=== PATIENT | male | born 1955 | race Caucasian/White ===

== ENCOUNTER 2016-08-19 07:45 | Emergency (ER) | payer OTHER ==
--- NOTE | 2016-08-19 09:33 | DIAGNOSTIC IMAGING REPORT ---
PROCEDURE: XR TOE - LEFT INDICATION: Right second toe ulceration, initial encounter TECHNIQUE: Three views COMPARISON: None. FINDINGS: Soft tissue swelling of the right second toe but the no evidence of osteomyelitis. Prior amputation of the third toe from the distal aspect of the proximal phalanx. IMPRESSION: 1. Soft tissue swelling of the right second toe suggestive of cellulitis but no evidence of osteomyelitis 2. Right third toe amputation
--- NOTE | 2016-08-19 11:24 | ED ORDER SUMMARY ---
..... Patient: JACKELYN THOMPSON OrderSheet [facility] VisitID: [id number] [address] [place] [address] 60y, M Registration Date/Time: 08/19/2016 ORDER SHEET Weight: 109.1 kg (stated) Allergies: Valium, Levofloxacin, Codeine GENERAL ORDERS: Toe Left Urgent (08:34 08/19/2016 Samuel Gonzalez) (Ack 8:36 TBergley) (9:08 MWinterer R.N.) CBC w Diff Urgent (08:08/19/2016 Samuel Gonzalez) (Ack 8:36 TBergley) (9:08 LSullivan R.N.) (9:08 MWinterer R.N.) CMP Urgent (08:08/19/2016 Samuel Gonzalez) (Ack 8:36 TBergley) (9:08 LSullivan R.N.) (9:08 MWinterer R.N.) PT with INR Urgent (08:34 08/19/2016 Samuel Gonzalez) (Ack 8:36 TBergley) (9:08 LSullivan R.N.) (9:08 MWinterer R.N.) PTT Urgent (08:08/19/2016 Samuel Gonzalez) (Ack 8:36 TBergley) (9:08 LSullivan R.N.) (9:08 MWinterer R.N.) Sed Rate Urgent (08:08/19/2016 Samuel Gonzalez) (Ack 8:37 TBergley) (9:08 LSullivan R.N.) (9:08 MWinterer R.N.) CRP Urgent (08:08/19/2016 Samuel Gonzalez) (Ack 8:36 TBergley) (9:08 LSullivan R.N.) (9:08 MWinterer R.N.) - (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 verbal order read back to Samuel Gonzalez) (9:19 TBergley) Culture, Wound Deep (Foot) (swab) Urgent (11:37 08/19/2016 Frederic AGUILAR) (Ack 11:44 TBergley) (11:53 MWinterer R.N.) MEDICATION ORDERS: IV FLUIDS: IV Saline Lock (08:35 08/19/2016 Samuel Gonzalez) (9:08 LSullivan R.N.) D-50 IV 25 gm (NOW, IVP) (09:48 08/19/2016 Frederic AGUILAR) (Ack 9:50 MWinterer R.N.) (9:56 MWinterer R.N.) Vancomycin IV 2 gm/500 mL (NOW) (11:36 08/19/2016 Frederic AGUILAR) (Ack 11:53 MWinterer R.N.) (12:22 MWinterer R.N.) ORDER SHEET NOTES: [Electronically signed by Isabella Mancuso R.N. (15:32 08/19/2016)] [Electronically signed by Harry Edmond MD (22:13 08/22/2016)] [Electronically locked/signed by Isabella Mancuso R.N. (15:32 08/19/2016)]
--- NOTE | 2016-08-19 11:24 | ED CLINICAL REPORT ---
Clinical Report - Physicians/Mid Levels [facility] [address] [place] [address] 08/19/2016 7:48 Patient: JACKELYN THOMPSON Time Seen: 8:22. Arrived- By private vehicle. Historian- patient. CPT: ER phys charges level 5 (#[id number]). HISTORY OF PRESENT ILLNESS Chief Complaint: ; ;(left 2nd digit swelling and apin). Severity is described as being severe. It has become recently worse. The quality is noted to be sharp. No radiation. Modifying factors- worsened by movement. Relieved by remaining still. Is still present (worsening). Location: left 2nd toe. The patient has had redness (over area of toe). He has had moderate swelling of the right 2nd toe. No difficulty walking. No bladder dysfunction or bowel dysfunction. ( reports pus to the toe and wound). Patient denies an injury. Similar symptoms previously: None. Recent medical care: Not recently seen/assessed. REVIEW OF SYSTEMS No cough, chest pain, difficulty breathing, fever or enlarged lymph nodes. No neck pain, back pain, sore throat or throat or abdominal pain. No vomiting, diarrhea, black stools, difficulty with urination or weakness. No diabetic symptoms or easy bruising. The patient has had skin rash. All systems otherwise negative, except as recorded above. PAST HISTORY See nurses notes. Medications: Magnesium Oral. Eucerin External. Albuterol Sulfate Inhalation. Flonase Nasal. Claritin Oral. Insulin Glargine Subcutaneous. Insulin Aspart Subcutaneous. Allergies: Codeine. Levofloxacin. Valium. SOCIAL HISTORY Never smoker. No alcohol use or drug use. No recent travel. Is a local resident. ADDITIONAL NOTES The nursing notes have been reviewed. PHYSICAL EXAM Vital Signs: 08/19/2016 07:54 BP: 142/65. HR: 97. RR: 22. O2 saturation: 97%. Temp: 98.6 F. Pain level now: 8/10. Blood pressure normal. Oxygen saturation normal. Appearance: Alert. Oriented X3. No acute distress. Eyes: Pupils equal, round and reactive to light. Eyes normal inspection. ENT: Ears normal. Nose normal. Pharynx normal. Neck: Normal inspection. Neck supple. CVS: Normal heart rate and rhythm. Heart sounds normal. Respiratory: No respiratory distress. Breath sounds normal. Abdomen: Soft and nontender. No organomegaly. Back: Normal inspection. No tenderness. ROM normal. Skin: Skin intact. Skin warm and dry. Normal skin color. Normal skin turgor. Extremities: (digits missing from the left foot. The second digit on the left foot is erythematous with pustule present. Chronic ulcerative wound noted to the plantar aspect of the toe over the distal aspect. No signs of ascending infection. Area is tender to palpation. No crepitus. No bony other maladies.). Extremities otherwise negative. Neuro: Oriented X 3. No motor deficit. No sensory deficit. LABS, X-RAYS, AND EKG Rt Foot X-ray: (3rd toe amputation. Second toe STS but no evidence of osteo.). Views: 3 view foot series. Technique: good. The X-rays were independently viewed by me and interpreted by the radiologist. Laboratory Tests: UA-Culture if indicated: (LEONELA: 08/19/2016 09:00) ( Mscvd 08/19/2016 09:30) Final results Test Result Flag Units (Reference) URINE COLOR YELLOW URINE APPEARANCE CLEAR URINE GLUCOSE TRACE (NEGATIVE) URINE BILIRUBIN NEGATIVE (NEGATIVE) URINE KETONE NEGATIVE (NEGATIVE) URINE SPECIFIC GRAVITY 1.025 (1.010-1.030) URINE PH 5.5 (5.0-8.0) URINE PROTEIN 1+ (NEGATIVE) URINE UROBILINOGEN 0.2 EU/dL (0.2-1.0) URINE NITRITE NEGATIVE (NEGATIVE) URINE BLOOD TRACE-INTACT (NEGATIVE) URINE LEUK ESTERASE NEGATIVE (NEGATIVE) URINE RBC NONE SEEN rbc/hpf (0-1) URINE WBC RARE wbc/hpf (0-1) URINE EPITHELIAL CELLS RARE EPI/hpf (0-5) URINE BACTERIA NONE SEEN (NONE SEEN) URINE COMMENT CULT NOT INDICATED URINE CULTURES ARE SET-UP BASED ON THE FOLLOWING CRITERIA:POSITIVE NITRITEPOSITIVE LEUKOCYTE ESTERASEGREATER THAN 10 WHITE BLOOD CELLSMODERATE (2+) OR GREATER BACTERIA CBC w Diff: (LEONELA: 08/19/2016 09:00) ( MsgRcvd 08/19/2016 09:38) Final results Test Result Flag Units (Reference) WHITE BLOOD COUNT 10.6 K/uL (4.5-11.5) RED BLOOD COUNT 4.09 L M/uL (4.50-5.90) HEMOGLOBIN 13.0 L gm/dL (13.5-17.5) HEMATOCRIT 38.1 L % (41.0-53.0) MEAN CELL VOLUME 93 fL (80-100) MEAN CORPUSCULAR HGB 32 pg (26-34) MEAN CORPUSCULAR HGB CONC 34 g/dL (31-37) RED CELL DISTRIBUTION WIDTH 14.2 % (11.6-14.8) PLATELET COUNT 191 K/uL (150-400) NEUTROPHIL % 70.4 % (50-75) LYMPH % 16.6 L % (25-40) MONO % 8.7 % (3-14) EOSINOPHIL % 3.8 % (0-4) BASOPHIL % 0.5 % (0-2) SED RATE WESTERGREN 71 H mm/hr (0-20) PT with INR: (LEONELA: 08/19/2016 09:00) ( MsgRcvd 08/19/2016 09:20) Final results Test Result Flag Units (Reference) INR 1.0 (0.8-1.2) Low Intensity Therapy: INR 1.5-2.0 PT range 18.5-23.1Mod.Intensity Therapy: INR 2.0-3.0 PT range 23.1-31.5High Intensity Therapy: INR 2.5-3.5 PT range 27.4-35.5High Intensity Therapy 2: INR 3.0-4.0 PT range 31.5-39.3 APTT 27 SECONDS (24-34) CMP: (LEONELA: 08/19/2016 09:00) ( MsgRcvd 08/19/2016 09:36) Final results Test Result Flag Units (Reference) GLUCOSE 70 mg/dL (70-110) BUN 70 H mg/dL (7-18) CREATININE 3.2 H mg/dL (0.6-1.3) Estimated GFR 21.02 mL/min Estimated GFR- 25.48 mL/min Note: Persistent reduction over 3 months in eGFR<60 mL/min/1.73 m2 defines CKD. Patients with eGFR values>=60 mL/min/1.73 m2 may also have CKD if evidence ofpersistent proteinuria. Additional information may be foundat www.kidney.org. SODIUM 136 mmol/L (136-145) POTASSIUM 3.5 mmol/L (3.5-5.1) CHLORIDE 97 L mmol/L (98-107) CARBON DIOXIDE 26 mmol/L (21-32) CALCIUM 9.5 mg/dL (8.5-10.1) TOTAL PROTEIN 7.4 g/dL (6.4-8.2) ALBUMIN 3.7 g/dL (3.3-5.0) BILIRUBIN, TOTAL 0.6 mg/dL (0.0-1.0) ALKALINE PHOSPHATASE 88 U/L (46-116) AST (SGOT) 4 L U/L (15-37) ALT (SGPT) 35 U/L (12-78) C-REACTIVE PROTEIN 5.5 H mg/dL (0.0-0.9) . PROGRESS AND PROCEDURES Course of Care: The patient is a pleasant 60-year-old male with past medical history significant for diabetes, hypertension, and prior amputations presented for evaluation of left second digit toe pain. At this time differential diagnosis includes osteomyelitis, gangrene, and cellulitis. Patient is to be evaluated with laboratory studies and x-rays. At this time workup is pending. The oncoming physician will follow-up with the patient's laboratory studies and x-ray. Patient follows up with Dr. Peacock. Patient is contacted this physician who antoni log chain worker. Patient states that Dr. Peacock will be seeing the patient here in the emergency department. 09:55 08/19/16. I have evaluated the patient's right second toe. His CRP is elevated but his x-ray doesn't show any signs of osteopenia. He has A bullus and erythematous swelling on his right second toe. ER is Dr. Edmond. Awaiting Dr Peacock arrival. Pt due for dialysis today and there are no services here at [facility]. Will discuss with Dr Peacock as too the facility an amputation should occur in given the medical [problems. Culture of bulla aspirate right second toe Vancomycin 2g IV 12:12 08/19/16. Discussed with Dr Cobb: Wesley and he will accept patient in transfer. Pt wants to drive to [facility] and not take ambulance. Consult obtained. Dr. Peacock from podiatry. Patient/family counseled. Disposition: Transferred to [facility]. CLINICAL IMPRESSION Infected right second toe IDDM CRF: dialysis. INSTRUCTIONS (Go to [facility] for admission. Dr Cobb is your Doctor. Bed D627 is your Hospital bed assignment.). (Electronically signed by Harry Edmond MD 08/22/2016 22:13) Addenda for JACKELYN THOMPSON VisitID: [id number] Date: 08/19/2016 08/20/2016 14:21 Phone call placed to RN cold storage supervisor at [facility], faxed culture report "gram negative carroll" in wound, to floor where pt is admitted, fax number [phone]. (Electronically signed by Janae Alamo R.N. - 08/20/2016 14:21) 08/21/2016 16:52 Final Wound Culture faxed to where pt is admitted. fax # [phone]. (Electronically signed by Alva Caldwell R.N. - 08/21/2016 16:52)
--- NOTE | 2016-08-19 11:24 | ED ORDER SUMMARY ---
..... Patient: JACKELYN THOMPSON OrderSheet [facility] VisitID: [id number] [address] [place] [address] 60y, M Registration Date/Time: 08/19/2016 ORDER SHEET Weight: 109.1 kg (stated) Allergies: Valium, Levofloxacin, Codeine GENERAL ORDERS: Toe Left Urgent (08:34 08/19/2016 Samuel Gonzalez) (Ack 8:36 TBergley) (9:08 MWinterer R.N.) CBC w Diff Urgent (08:08/19/2016 Samuel Gonzalez) (Ack 8:36 TBergley) (9:08 LSullivan R.N.) (9:08 MWinterer R.N.) CMP Urgent (08:08/19/2016 Samuel Gonzalez) (Ack 8:36 TBergley) (9:08 LSullivan R.N.) (9:08 MWinterer R.N.) PT with INR Urgent (08:34 08/19/2016 Samuel Gonzalez) (Ack 8:36 TBergley) (9:08 LSullivan R.N.) (9:08 MWinterer R.N.) PTT Urgent (08:08/19/2016 Samuel Gonzalez) (Ack 8:36 TBergley) (9:08 LSullivan R.N.) (9:08 MWinterer R.N.) Sed Rate Urgent (08:08/19/2016 Samuel Gonzalez) (Ack 8:37 TBergley) (9:08 LSullivan R.N.) (9:08 MWinterer R.N.) CRP Urgent (08:08/19/2016 Samuel Gonzalez) (Ack 8:36 TBergley) (9:08 LSullivan R.N.) (9:08 MWinterer R.N.) - (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 verbal order read back to Samuel Gonzalez) (9:19 TBergley) Culture, Wound Deep (Foot) (swab) Urgent (11:37 08/19/2016 Frederic AGUILAR) (Ack 11:44 TBergley) (11:53 MWinterer R.N.) MEDICATION ORDERS: IV FLUIDS: IV Saline Lock (08:35 08/19/2016 Samuel Gonzalez) (9:08 LSullivan R.N.) D-50 IV 25 gm (NOW, IVP) (09:48 08/19/2016 Frederic AGUILAR) (Ack 9:50 MWinterer R.N.) (9:56 MWinterer R.N.) Vancomycin IV 2 gm/500 mL (NOW) (11:36 08/19/2016 Frederic AGUILAR) (Ack 11:53 MWinterer R.N.) (12:22 MWinterer R.N.) ORDER SHEET NOTES: [Electronically signed by Isabella Mancuso R.N. (15:32 08/19/2016)] [Electronically signed by Harry Edmond MD (22:13 08/22/2016)] [Electronically locked/signed by Isabella Mancuso R.N. (15:32 08/19/2016)]
--- NOTE | 2016-08-19 11:24 | ED CLINICAL REPORT ---
Clinical Report - Physicians/Mid Levels [facility] [address] [place] [address] 08/19/2016 7:48 Patient: JACKELYN THOMPSON Time Seen: 8:22. Arrived- By private vehicle. Historian- patient. CPT: ER phys charges level 5 (#[id number]). HISTORY OF PRESENT ILLNESS Chief Complaint: ; ;(left 2nd digit swelling and apin). Severity is described as being severe. It has become recently worse. The quality is noted to be sharp. No radiation. Modifying factors- worsened by movement. Relieved by remaining still. Is still present (worsening). Location: left 2nd toe. The patient has had redness (over area of toe). He has had moderate swelling of the right 2nd toe. No difficulty walking. No bladder dysfunction or bowel dysfunction. ( reports pus to the toe and wound). Patient denies an injury. Similar symptoms previously: None. Recent medical care: Not recently seen/assessed. REVIEW OF SYSTEMS No cough, chest pain, difficulty breathing, fever or enlarged lymph nodes. No neck pain, back pain, sore throat or throat or abdominal pain. No vomiting, diarrhea, black stools, difficulty with urination or weakness. No diabetic symptoms or easy bruising. The patient has had skin rash. All systems otherwise negative, except as recorded above. PAST HISTORY See nurses notes. Medications: Magnesium Oral. Eucerin External. Albuterol Sulfate Inhalation. Flonase Nasal. Claritin Oral. Insulin Glargine Subcutaneous. Insulin Aspart Subcutaneous. Allergies: Codeine. Levofloxacin. Valium. SOCIAL HISTORY Never smoker. No alcohol use or drug use. No recent travel. Is a local resident. ADDITIONAL NOTES The nursing notes have been reviewed. PHYSICAL EXAM Vital Signs: 08/19/2016 07:54 BP: 142/65. HR: 97. RR: 22. O2 saturation: 97%. Temp: 98.6 F. Pain level now: 8/10. Blood pressure normal. Oxygen saturation normal. Appearance: Alert. Oriented X3. No acute distress. Eyes: Pupils equal, round and reactive to light. Eyes normal inspection. ENT: Ears normal. Nose normal. Pharynx normal. Neck: Normal inspection. Neck supple. CVS: Normal heart rate and rhythm. Heart sounds normal. Respiratory: No respiratory distress. Breath sounds normal. Abdomen: Soft and nontender. No organomegaly. Back: Normal inspection. No tenderness. ROM normal. Skin: Skin intact. Skin warm and dry. Normal skin color. Normal skin turgor. Extremities: (digits missing from the left foot. The second digit on the left foot is erythematous with pustule present. Chronic ulcerative wound noted to the plantar aspect of the toe over the distal aspect. No signs of ascending infection. Area is tender to palpation. No crepitus. No bony other maladies.). Extremities otherwise negative. Neuro: Oriented X 3. No motor deficit. No sensory deficit. LABS, X-RAYS, AND EKG Rt Foot X-ray: (3rd toe amputation. Second toe STS but no evidence of osteo.). Views: 3 view foot series. Technique: good. The X-rays were independently viewed by me and interpreted by the radiologist. Laboratory Tests: UA-Culture if indicated: (LEONELA: 08/19/2016 09:00) ( Mscvd 08/19/2016 09:30) Final results Test Result Flag Units (Reference) URINE COLOR YELLOW URINE APPEARANCE CLEAR URINE GLUCOSE TRACE (NEGATIVE) URINE BILIRUBIN NEGATIVE (NEGATIVE) URINE KETONE NEGATIVE (NEGATIVE) URINE SPECIFIC GRAVITY 1.025 (1.010-1.030) URINE PH 5.5 (5.0-8.0) URINE PROTEIN 1+ (NEGATIVE) URINE UROBILINOGEN 0.2 EU/dL (0.2-1.0) URINE NITRITE NEGATIVE (NEGATIVE) URINE BLOOD TRACE-INTACT (NEGATIVE) URINE LEUK ESTERASE NEGATIVE (NEGATIVE) URINE RBC NONE SEEN rbc/hpf (0-1) URINE WBC RARE wbc/hpf (0-1) URINE EPITHELIAL CELLS RARE EPI/hpf (0-5) URINE BACTERIA NONE SEEN (NONE SEEN) URINE COMMENT CULT NOT INDICATED URINE CULTURES ARE SET-UP BASED ON THE FOLLOWING CRITERIA:POSITIVE NITRITEPOSITIVE LEUKOCYTE ESTERASEGREATER THAN 10 WHITE BLOOD CELLSMODERATE (2+) OR GREATER BACTERIA CBC w Diff: (LEONELA: 08/19/2016 09:00) ( MsgRcvd 08/19/2016 09:38) Final results Test Result Flag Units (Reference) WHITE BLOOD COUNT 10.6 K/uL (4.5-11.5) RED BLOOD COUNT 4.09 L M/uL (4.50-5.90) HEMOGLOBIN 13.0 L gm/dL (13.5-17.5) HEMATOCRIT 38.1 L % (41.0-53.0) MEAN CELL VOLUME 93 fL (80-100) MEAN CORPUSCULAR HGB 32 pg (26-34) MEAN CORPUSCULAR HGB CONC 34 g/dL (31-37) RED CELL DISTRIBUTION WIDTH 14.2 % (11.6-14.8) PLATELET COUNT 191 K/uL (150-400) NEUTROPHIL % 70.4 % (50-75) LYMPH % 16.6 L % (25-40) MONO % 8.7 % (3-14) EOSINOPHIL % 3.8 % (0-4) BASOPHIL % 0.5 % (0-2) SED RATE WESTERGREN 71 H mm/hr (0-20) PT with INR: (LEONELA: 08/19/2016 09:00) ( MsgRcvd 08/19/2016 09:20) Final results Test Result Flag Units (Reference) INR 1.0 (0.8-1.2) Low Intensity Therapy: INR 1.5-2.0 PT range 18.5-23.1Mod.Intensity Therapy: INR 2.0-3.0 PT range 23.1-31.5High Intensity Therapy: INR 2.5-3.5 PT range 27.4-35.5High Intensity Therapy 2: INR 3.0-4.0 PT range 31.5-39.3 APTT 27 SECONDS (24-34) CMP: (LEONELA: 08/19/2016 09:00) ( MsgRcvd 08/19/2016 09:36) Final results Test Result Flag Units (Reference) GLUCOSE 70 mg/dL (70-110) BUN 70 H mg/dL (7-18) CREATININE 3.2 H mg/dL (0.6-1.3) Estimated GFR 21.02 mL/min Estimated GFR- 25.48 mL/min Note: Persistent reduction over 3 months in eGFR<60 mL/min/1.73 m2 defines CKD. Patients with eGFR values>=60 mL/min/1.73 m2 may also have CKD if evidence ofpersistent proteinuria. Additional information may be foundat www.kidney.org. SODIUM 136 mmol/L (136-145) POTASSIUM 3.5 mmol/L (3.5-5.1) CHLORIDE 97 L mmol/L (98-107) CARBON DIOXIDE 26 mmol/L (21-32) CALCIUM 9.5 mg/dL (8.5-10.1) TOTAL PROTEIN 7.4 g/dL (6.4-8.2) ALBUMIN 3.7 g/dL (3.3-5.0) BILIRUBIN, TOTAL 0.6 mg/dL (0.0-1.0) ALKALINE PHOSPHATASE 88 U/L (46-116) AST (SGOT) 4 L U/L (15-37) ALT (SGPT) 35 U/L (12-78) C-REACTIVE PROTEIN 5.5 H mg/dL (0.0-0.9) . PROGRESS AND PROCEDURES Course of Care: The patient is a pleasant 60-year-old male with past medical history significant for diabetes, hypertension, and prior amputations presented for evaluation of left second digit toe pain. At this time differential diagnosis includes osteomyelitis, gangrene, and cellulitis. Patient is to be evaluated with laboratory studies and x-rays. At this time workup is pending. The oncoming physician will follow-up with the patient's laboratory studies and x-ray. Patient follows up with Dr. Peacock. Patient is contacted this physician who antoni record tester. Patient states that Dr. Peacock will be seeing the patient here in the emergency department. 09:55 08/19/16. I have evaluated the patient's right second toe. His CRP is elevated but his x-ray doesn't show any signs of osteopenia. He has A bullus and erythematous swelling on his right second toe. ER is Dr. Edmond. Awaiting Dr Peacock arrival. Pt due for dialysis today and there are no services here at [facility]. Will discuss with Dr Peacock as too the facility an amputation should occur in given the medical [problems. Culture of bulla aspirate right second toe Vancomycin 2g IV 12:12 08/19/16. Discussed with Dr Cobb: Wesley and he will accept patient in transfer. Pt wants to drive to [facility] and not take ambulance. Consult obtained. Dr. Peacock from podiatry. Patient/family counseled. Disposition: Transferred to [facility]. CLINICAL IMPRESSION Infected right second toe IDDM CRF: dialysis. INSTRUCTIONS (Go to [facility] for admission. Dr Cobb is your Doctor. Bed D627 is your Hospital bed assignment.). (Electronically signed by Harry Edmond MD 08/22/2016 22:13) Addenda for JACKELYN THOMPSON VisitID: [id number] Date: 08/19/2016 08/20/2016 14:21 Phone call placed to RN tile setter supervisor at [facility], faxed culture report "gram negative carroll" in wound, to floor where pt is admitted, fax number [phone]. (Electronically signed by Janae Alamo R.N. - 08/20/2016 14:21) 08/21/2016 16:52 Final Wound Culture faxed to where pt is admitted. fax # [phone]. (Electronically signed by Alva Caldwell R.N. - 08/21/2016 16:52)
--- NOTE | 2016-08-19 11:24 | ED NURSING NOTES ---
Clinical Report - Nurses [place] [address] [place] [address] 08/19/2016 7:48 Patient: JACKELYN THOMPSON TRIAGE Acuity: LEVEL 3. Chief Complaint: LEFT LOWER EXTREMITY PAIN. Location of symptoms- left 2nd toe. Alert. No acute distress. SEPSIS SCREEN: Sepsis Screen. Negative (no infection suspected/documented). HANNAH COMA SCORE: Maskell Coma Scale: 15- eyes open spontaneously (4); best verbal response- oriented x 4 (5); best motor response- obeys commands (6). --08:08 Isabella Mancuso R.N. 07:54 08/19/16. BP: 142/65. HR: 97. RR: 22. O2 saturation: 97% on room air. Temp: 98.6 F (oral). Pain level now: 02/22. --08:08 Isabella Mancuso R.N. Weight: 109.1 kg stated. Height/Length: 71 inches Per Patient. BMI: 33.6. --08:03 Isabella Mancuso R.N. Medications Insulin Aspart Subcutaneous. --08:01 Isabella Mancuso R.N. Insulin Glargine Subcutaneous. --08:01 Isabella Mancuso R.N. Claritin Oral. --08:01 Isabella Mancuso R.N. Flonase Nasal. --08:01 Isabella Mancuso R.N. Albuterol Sulfate Inhalation. --08:01 Isabella Mancuso R.N. Eucerin External. --08:02 Isabella Mancuso R.N. Magnesium Oral. --08:02 Isabella Mancuso R.N. Medication/allergy information source: the patient. --08:08 Isabella Mancuso R.N. Allergies Valium. --08:03 Isabella Mancuso R.N. Levofloxacin. --08:03 Isabella Mancuso R.N. Codeine. --08:03 Isabella Mancuso R.N. History Arrived by private vehicle. Historian: patient. Accompanied by family. Primary physician (Madonna). This occurred just prior to arrival. ( Pt reports an ulcer on his left great toe that "erupted this morning." he states he phoned Dr Peacock and was instructed to come to the ED. He states Dr Peacock wants to be notified upon his arrival to ED..). SOCIAL HX: Never smoker. No alcohol use or drug use. NUTRITIONAL RISK ASSESSMENT: The nutritional risk assessment revealed no deficiencies. LEARNING NEEDS ASSESSMENT: The learning needs assessment revealed no barriers. FALL RISK ASSESSMENT: Fall risk assessment completed. Risk factors identified include patient impairment of mobility and sensation. Fall interventions initiated. Patient placed on stretcher. Side rails up x1. Brakes on Bed in low position. FUNCTIONAL ASSESSMENT: Functional assessment performed: independent with the activities of daily living; uses cane- this mobility impairment is an ongoing problem; has poor vision in both eyes. --08:08 Isabella Mancuso R.N. PROBLEMS: Asthma. Neuropathy. Pancreatitis. Kidney faliure. Heart Failure. Diabetes Mellitus. --08:03 Isabella Mancuso R.N. ADDITIONAL SURGERIES: Appendectomy. Cholecystectomy. --08:03 Isabella Mancuso R.N. Assessment GENERAL / NEURO / PSYCH: Alert. Oriented X 4. Appears in no acute distress. Patient appears calm and cooperative. RESPIRATORY: Respirations not labored. CVS: Capillary refill less than 2 seconds. GI / : Abdomen soft and nontender. SKIN: Mucous membranes are pink. Skin is warm and dry. --08:08 Isabella Mancuso R.N. Interventions ID band on patient. To treatment room. --08: Isabella Mancuso R.N. PHYSICAL ASSESSMENT 08:08/19/16. Ambulatory to room. GENERAL / NEURO / PSYCH: Oriented X 4. Alert. Appears in no acute distress. EXTREMITIES: Extremity pulses are within normal limits. Neuro-vascular status intact to the extremity. Left second toe: tenderness, swelling and erythema. SKIN: Skin is warm and dry. --08:09 Isabella Mancuso R.N. NURSING PROGRESS NOTES 08:08/19/16. Two patient identifiers checked. Call light placed in reach. Bed placed in lowest position. Brakes of bed on. Patient ready for evaluation- chart flagged and ED physician notified. --08:08 Isabella Mancuso R.N. 09:08 08/19/2016 Site #1 started via IV in the left hand with an 20g angiocath, with aseptic technique and good blood return; one attempt. Blood drawn: rainbow set. Labeled in the presence of the patient and sent to the lab. Saline lock flushed with 10 mL saline. --09:08 Janae Alamo R.N. Patient ID band checked for patient name and birthdate: patient confirmed. Clean catch urine collected with return of yellow-colored clear urine; sample sent to lab for urinalysis and culture. Specimen labeled in the presence of the patient. --09:31 Janae Alamo R.N. ( Pt states Dr. Peacock sent pt to the ED to be "checked out". Pt is sure he is going to be admitted to hospital for "amputation of my toe"). --09:31 Janae Alamo R.N. 09:48 08/19/16. ( PT blood sugar 51.). --09:48 Annia Dey 09:56 08/19/2016 D-50 IVP 25 gm given over 4 minute(s) via site #1. Allergies verified and confirmed 5 rights. IV patency established. IV site checked: no pain, redness, or swelling. IV flushed thoroughly pre- and post-medication administration. IVP given by RN. --09:56 Isabella Mancuso R.N. 09:56 08/19/16. BP: 158/61. HR: 78. RR: 18. O2 saturation: 95% on room air. --09:57 Isabella Mancuso R.N. 12:22 08/19/2016 Started 2 gm of Vancomycin IVPB in bag #1 500 mL; at 270 mL/hr over 2 hour(s) via site #1 via IV pump. Allergies verified and confirmed 5 rights. IV patency established. IV site checked: no pain, redness, or swelling. IV flushed thoroughly pre- and post-medication administration. --12:22 Isabella Mancuso R.N. 12:57 08/19/16. Point of care testing: performed by nurse. Glucose: 132. Result shown to the ED physician. --12:57 Isabella Mancuso R.N. 13:14 08/19/16. The patient is sleeping. --13:14 Isabella Mancuso R.N. 14:26 08/19/2016 Vancomycin IVPB Discontinued: completed. Total amount infused: 500 mL. IV flushed thoroughly. --14:31 Janae Alamo R.N. DISPOSITION / DISCHARGE Departure time: 1429Aug 19 2016. Condition at departure: improved and stable. No learning barriers present. Transferred to [facility] (per POV driving). --15:31 Isabella Mancuso R.N. 15:30 08/19/16. BP: 163/60. HR: 74. RR: 18. O2 saturation: 96% on room air. Temp: 98.4 F (oral). Pain level now: 0/10. --15:31 Isabella Mancuso R.N. 14:30 08/19/2016 Site #[address] upon transfer; patent, no pain and no signs of infection or infiltration. Flushed with 10 mL saline; flushes easily. --15:32 Isabella Mancuso R.N. Locked/Released at 08/19/2016 15:32 by Isabella Mancuso R.N.
--- NOTE | 2016-08-22 22:14 | ED MAR SUMMARY ---
..... Medication Administration Record [facility] [address] [place] [address] Patient: JACKELYN THOMPSON Visit ID: [id number] 60y, M Weight: 109.1 kg Height/Length: 71 in BMI: 33.6 ALLERGIES: Codeine, Levofloxacin, Valium Given 09:56 08/19/2016 Isabella Mancuso, RPurviN. Medication Administered: D-50 [IVP], Dose: 25 gm IVP over 4 minute(s), Site: #1 left hand. Medication Ordered: D-50 IV 25 gm (NOW, IVP). Start 12:22 08/19/2016 Isabella Mancuso, R.N., Stop 14:26 08/19/2016 Janae Alamo RLoyda Medication Administered: VANCOMYCIN [IVPB], Dose: 2 gm IVPB over 2 hour(s), Rate: 270 mL/hr, Dispensed: 500 mL bag, Site: #1 left hand. Medication Ordered: Vancomycin IV 2 gm/500 mL (NOW).
--- NOTE | 2016-08-22 22:14 | ED DISCHARGE INSTRUCTIONS ---
Patient: JACKELYN THOMPSON General Instructions [facility] VisitID: [id number] [address] [place] [address] 60y, M Registration Date/Time: 08/19/2016 Infected right second toe IDDM CRF: dialysis. INSTRUCTIONS (Go to [facility] for admission. Dr Cobb is your Doctor. Bed D627 is your Hospital bed assignment.). (Electronically signed by Harry Edmond MD 08/22/2016 22:13)
--- NOTE | 2016-08-22 22:14 | ED DISCHARGE INSTRUCTIONS ---
Patient: JACKELYN THOMPSON General Instructions [facility] VisitID: [id number] [address] [place] [address] 60y, M Registration Date/Time: 08/19/2016 Infected right second toe IDDM CRF: dialysis. INSTRUCTIONS (Go to [facility] for admission. Dr Cobb is your Doctor. Bed D627 is your Hospital bed assignment.). (Electronically signed by Harry Edmond MD 08/22/2016 22:13)
--- NOTE | 2016-08-22 22:14 | ED MED RECONCILIATION SUMMARY ---
Patient: JACKELYN THOMPSON Medication Reconciliation Report [facility] VisitID: [id number] [address] [place] [address] 60y, M Registration Date/Time: 08/19/2016 Weight: 109.1 kg Height/Length: 71 in. BMI: 33.6 ALLERGIES: Codeine, Levofloxacin, Valium The patient's Home Medications are listed below: THE FOLLOWING MEDICATIONS NEED TO BE RECONCILED: Albuterol Sulfate Inhalation Claritin Oral Eucerin External Flonase Nasal Insulin Aspart Subcutaneous Insulin Glargine Subcutaneous Magnesium Oral The source(s) of the original Home Medication information: patient The following Medications were given to the patient in the Emergency Department: D-50 [IVP] IVP 25 gm, administered: 08/19/2016 9:56:00 AM Vancomycin [IVPB] IVPB bolus 0, then 2 gm 270 mL/hr, administered: 08/19/2016 12:22:00 PM The following Medications were prescribed to the patient: None.
--- NOTE | 2016-08-22 22:14 | ED MED RECONCILIATION SUMMARY ---
Patient: JACKELYN THOMPSNO Medication Reconciliation Report [facility] VisitID: [id number] [address] [place] [address] 60y, M Registration Date/Time: 08/19/2016 Weight: 109.1 kg Height/Length: 71 in. BMI: 33.6 ALLERGIES: Codeine, Levofloxacin, Valium The patient's Home Medications are listed below: THE FOLLOWING MEDICATIONS NEED TO BE RECONCILED: Albuterol Sulfate Inhalation Claritin Oral Eucerin External Flonase Nasal Insulin Aspart Subcutaneous Insulin Glargine Subcutaneous Magnesium Oral The source(s) of the original Home Medication information: patient The following Medications were given to the patient in the Emergency Department: D-50 [IVP] IVP 25 gm, administered: 08/19/2016 9:56:00 AM Vancomycin [IVPB] IVPB bolus 0, then 2 gm 270 mL/hr, administered: 08/19/2016 12:22:00 PM The following Medications were prescribed to the patient: None.
--- NOTE | 2016-08-22 22:14 | ED MAR SUMMARY ---
..... Medication Administration Record [facility] [address] [place] [address] Patient: JACKELYN THOMPSON Visit ID: [id number] 60y, M Weight: 109.1 kg Height/Length: 71 in BMI: 33.6 ALLERGIES: Codeine, Levofloxacin, Valium Given 09:56 08/19/2016 Isabella Mancuso, RPurviN. Medication Administered: D-50 [IVP], Dose: 25 gm IVP over 4 minute(s), Site: #1 left hand. Medication Ordered: D-50 IV 25 gm (NOW, IVP). Start 12:22 08/19/2016 Isabella Mancuso, R.N., Stop 14:26 08/19/2016 Janae Alamo RLoyda Medication Administered: VANCOMYCIN [IVPB], Dose: 2 gm IVPB over 2 hour(s), Rate: 270 mL/hr, Dispensed: 500 mL bag, Site: #1 left hand. Medication Ordered: Vancomycin IV 2 gm/500 mL (NOW).
== END 2016-08-19 14:30 | disposition short-term general hospital (02) ==
LOC: ED SRH 07:45
DX: L08.9 Local infection of the skin and subcutaneous tissue, unspecified (principal); E11.628 Type 2 diabetes mellitus with other skin complications; E11.22 Type 2 diabetes mellitus with diabetic chronic kidney disease; I13.0 Hypertensive heart and chronic kidney disease with heart failure and stage 1 through stage 4 chronic kidney disease, or unspecified chronic kidney disease; N18.9 Chronic kidney disease, unspecified; I50.9 Heart failure, unspecified; E11.40 Type 2 diabetes mellitus with diabetic neuropathy, unspecified; Z79.4 Long term (current) use of insulin; Z88.1 Allergy status to other antibiotic agents; Z88.5 Allergy status to narcotic agent